=== PATIENT | female | born 1980 | race African-American/Black ===

== ENCOUNTER 2024-03-03 05:09 | Observation (INO) | payer SELFPAY ==
[2024-03-02 22:14] VITALS: BP 145/85
[2024-03-02 22:32] LABS: % Basophils 0.2 % (0-2); % Immature Granulocytes 0.4 % (0-0.5); % Lymphocytes 14.3 % (20.5-51.1); % Monocytes 4.5 % (1.7-9.3); % Neutrophils 80.6 % (42.2-75.2); Absolute Immature Granulocytes 0.1 10^3/uL (0-0.05); Absolute Lymphocytes 2.6 10^3/uL (1.2-3.4); Absolute Monocytes 0.8 10^3/uL (0.1-0.6); Absolute Neutrophils 14.6 10^3/uL (1.4-6.5); Hematocrit 30.7 % (37.0-47.0); Mean Corp Hgb Conc. 32.6 g/dL (33.0-37.0); Mean Corpuscular Hgb 22.8 pg (27.0-31.0); Mean Corpuscular Volume 69.9 fL (81.0-99.0); Mean Platelet Volume 10.3 fL (7.4-10.4); Nucleated Red Blood Cells % 0 %; Platelet Count 333 10^3/uL (130-400); Red Blood Cell Count 4.39 10^6/uL (4.20-5.40); Red Cell Dist. Width 17.2 % (11.5-14.5); White Blood Cell Count 18.1 10^3/uL (4.8-10.8)
[2024-03-02 22:44] LABS: HCG, Serum Qualitative Screen Negative
[2024-03-02 22:48] LABS: ALT (SGPT) 14 U/L (0-35); AST (SGOT) 22 U/L (14-36); Albumin 4.5 g/dl (3.5-5.0); Alkaline Phosphatase 96 U/L (38-126); Blood Urea Nitrogen 9 mg/dl (7-17); Calcium 9.2 mg/dl (8.4-10.2); Carbon Dioxide 20 mmol/L (22-30); Chloride 103 mmol/L (98-107); Glucose 159 mg/dl (70-99); Potassium 3.8 mmol/L (3.5-5.1); Sodium 131 mmol/L (135-145); Total Bilirubin 0.5 mg/dl (0.2-1.3); Total Protein 7.5 g/dl (6.3-8.2); eGFR > 60.00
[2024-03-02 23:58] VITALS: BP 116/79
[2024-03-03] VITALS (15 sets, daily range): BP systolic 117–181; BP diastolic 47–112; PULSE 79–90; O2SAT 100; BMI 41.2; BMI 39.8
--- NOTE | 2024-03-03 00:34 | ED.GENMED ---
History of Present Illness
General
Chief Complaint: Dizziness
Source: patient
Exam Limitations: none
Time Seen by Provider: 03/02/24 23:56
Travel History
Have you had any contact with someone who has COVID-19?: No
Do you have any symptoms of coronavirus? Fever > 100 degrees, chills, cough, shortness of breath, sore throat, loss of taste or smell, muscle aches, or headache?: No
History of Present Illness
History of Present Illness:
This is a 44 year old female that comes in with c/o dizziness. States that she was sitting watching TV when the room started to spine. States that it came out of no where. States that she has lightheaded all day, felt nauseated and was vomiting.
States that after turning her head side to side she felt like she was spinning. Denies any double vision. Denies any fever, chills, chest pain, SOB, abd pain, diarrhea, headache, urinary burning.
Past History
Past History
ED Past Medical History: None; Negative Asthma, HTN, Hypercholesterolemia or NIDDM
ED Past Surgical History: None
Social History
Tobacco: Former smoker
Alcohol: None
Personal: Single
Living: with family
Review of Systems
Review of Systems
All Other Systems: ROS reviewed and negative except as documented in HPI and ROS
Constitutional: Reports no symptoms; Denies fever or chills
EENT: Reports no symptoms
Respiratory: Reports no symptoms; Denies cough or trouble breathing
Cardiac: Reports no symptoms; Denies chest pain
ABD/GI: Reports nausea and vomiting; Denies abdominal pain or diarrhea
: Reports no symptoms
Musculoskeletal: Reports no symptoms
Skin: Reports no symptoms
Neurological: Reports dizzy; Denies headache
Psychiatric: Reports no symptoms
Phy Exam
General Physical Exam
General Presentation: no apparent distress
General age: appears stated age
General Skin: warm and dry
General Habitus: normal
General Mental: alert
General Hydration: appears well hydrated
ENT Exam
ENT Exam: TM's normal, pharynx normal and neck supple
Eye Exam
Eye Exam: PERRL and other (Vertical and Horizontal Nystagmus)
Cardiovascular Exam
Cardiovascular Exam: regular rate/rhythm, no edema and normal peripheral pulses
Pulmonary Exam
Pulmonary Exam: lungs clear, no respiratory distress, no rales, chest non tender, no crackles, no rhonchi, no wheezing and no cough
Gastrointestinal Exam
Gastrointestinal Exam: normal bowel sounds, non tender, soft, no organomegaly, no pulsatile mass and non distended
NIH Stroke Score
Level of Consciousness: 0 - Alert
LOC questions: 0-Answers both correctly
LOC Commands: 0-Performs both correctly
Best Gaze: 0-Normal
Visual Berg: 0=Normal, no visual loss
Facial palsy: 0=Normal, symmetrical
Motor - Right Arm: 0=No drift 10 seconds
Motor - Left Arm: 0=No drift 10 seconds
Motor - Right Le-No drift 5 seconds
Motor - Left Le-No drift 5 seconds
Limb Ataxia: 0-Absent
Sensation: 0-Normal
Best Language: 0-No aphasia
Dysarthria: 0-Normal
Extinction and Inattention: 0-No abnormality
Total Score:: 0
Musculoskeletal Exam
Musculoskeletal Exam: full ROM and no edema
Skin Exam
Skin Exam: normal color, warm/dry, no rash and no petechia
Psychiatric Exam
Psychiatric Exam: normal mood/affect
Course
Orders/Labs/Results
Orders:
Orders
03/02/24 22:20
Electrocardiogram (*1) Urgent
Reason for Study: Vertigo / Dizzy
EKG- Treatment ONCE
Test Result ONCE
03/02/24 22:26
Complete Blood Count/With Diff Urgent
Comprehensive Metabolic Panel Urgent
HCG, Serum Qualitative Screen Urgent
03/03/24 00:33
CT Head W/o Iv Contrast Urgent
Comment:
Reason For Exam: Dizziness
Urinalysis Reflex To Culture Urgent
Meclizine [Antivert] 50 mg PO NOW STA
03/03/24 00:35
Ondansetron Injectable [Zofran] 4 mg IV NOW STA
03/03/24 02:07
Diphenhydramine [Benadryl] 25 mg IV NOW STA
Prochlorperazine [Compazine] 5 mg IV NOW STA
Abnormal Lab Results
03/02/24
22:26
WBC 18.1 H 10^3/uL
(4.8-10.8)
Hgb 10.0 L g/dL
(12.0-16.0)
Hct 30.7 L %
(37.0-47.0)
MCV 69.9 L fL
(81.0-99.0)
MCH 22.8 L pg
(27.0-31.0)
MCHC 32.6 L g/dL
(33.0-37.0)
RDW 17.2 H %
(11.5-14.5)
Abs Immat Gran (auto) 0.1 H 10^3/uL
(0-0.05)
Absolute Neuts (auto) 14.6 H 10^3/uL
(1.4-6.5)
Absolute Monos (auto) 0.8 H 10^3/uL
(0.1-0.6)
Neutrophils % 80.6 H %
(42.2-75.2)
Lymphocytes % 14.3 L %
(20.5-51.1)
Sodium 131 L mmol/L
(135-145)
Carbon Dioxide 20 L mmol/L
(22-30)
Glucose 159 H mg/dl
(70-99)
03/02/24 22:26
03/02/24 22:26
Leukocytosis, Sodium slightly low. Carbon dioxide low. Glucose nonfasting, HCG negative .
Vital Signs
Initial and Last Documented VS:
Initial Vital Signs
Temp Pulse Resp BP Pulse Ox
97.5 F 68 18 145/85 97
03/02/24 22:14 03/02/24 22:14 03/02/24 22:14 03/02/24 22:14 03/02/24 22:14
Last Documented Vital Signs
Temp Pulse Resp BP Pulse Ox
97.5 F 92 33 135/74 97
03/02/24 22:14 03/03/24 03:45 03/03/24 03:45 03/03/24 03:21 03/02/24 22:14
MDM/Problems Addressed
Differential Diagnosis Includes:
Vertigo, UTI
MDM/Problems Addressed:
This is a 44 year old female that comes in with c/o dizziness that started at 11am today. States that this came out of nowhere. States that she felt lightheaded all day.
Will check labs and get CT head and urine. Will give IV fluids and Antivert.
Back into see patient. Attempted to walk but patient is very unsteady. Continues with Dizziness. Will admit for further evaluation. Hospitalist notified.
Chronic conditions affecting care:
NA
Acute Exacerbation and/or Progression of Chronic Illness:
NA
*Radiology
Radiology exam reviewed: radiology read reviewed (CT head-No acute hemorrhage, herniation, or hydrocephalus. NO calvarial fracture. The visualized paranasal sinuses and mastoid air cells are clear. )
*Pulse Oximetry
Patient hypoxic: no
*EKG
Interpreted by ED Provider?: Yes
Heart Rate: 66
Rate: normal
Rhythm: sinus
[place]: normal axis
Interval: normal interval
QRS Pattern: normal QRS
Ischemia: T-wave inversion (aVR, V1, V2, )
*Bunk Assembler Interpretation
Rate: normal
Heart Rate: 62
Rhythm: sinus
*Critical Care Note
Total Time (30-74mins, 75-104mins- exclusive of procedures): Not Applicable
ED Attending Note
-
Portions of this chart may have been created with voice recognition software.� Occasional wrong word or��sound alike� substitutions may have occurred due to the inherent limitations of voice recognition software.
Discharge Plan
Departure
Patient Disposition: Admit
Date of Disposition: 03/03/24
Time of Disposition: 03:42
Admit to: Med/Surg
Presentation/result/management discussed w/ accepting MD/DO: Hospitalist
Patient with high blood pressure during this ER visit?: Yes
Condition: Good
Covid-19: Not Applicable
Discharge Problem:
Dizziness, Nausea & vomiting
Referrals:
Bridgett Marte CRNP [Family Provider] -
Interventions
Interventions:
*Risk Screen - Suicide Last Done: 03/02/24 22:14
*General Assessment Last Done: 03/02/24 22:14
*Neglect/Abuse Screening Last Done: 03/02/24 22:14
ED- Fall Risk Assessment Last Done: 03/03/24 00:15
ED- Neurological Assessment Last Done: 03/03/24 00:15
ED- Cardiac Assessment Last Done: 03/03/24 00:15
ED Swallowing Screen Last Done: 03/03/24 00:15
Discharge Date and Time
Print Language: AZERI
[2024-03-03] MEDS: ANTIVERT 50 MG PO (00:41)
[2024-03-03] MEDS: ZOFRAN 4 MG IV (00:41)
[2024-03-03] MEDS: COMPAZINE 5 MG IV (02:10)
[2024-03-03] MEDS: BENADRYL 25 MG IV (02:10)
--- NOTE | 2024-03-03 04:31 | HPS.HSE ---
Family Physician
-
Family Physician: Bridgett Marte
Chief Complaint
-
Dizziness
History of Present Illness
Patient is a 44y F with no significant PMH who presents to ED complaining of lightheadedness and dizziness. Patient states that she was feeling well until around noon today when she developed sudden onset of her symptoms. She describes more
lightheadedness than room spinning / vertigo; however, she was quite unsteady on her feet. She denies any fall or LOC. She denies any cough, sore throat, fevers / chills, etc.
She did become nauseated and notes that she had emesis x 4 episodes.
Her symptoms persisted throughout the afternoon and she presented her to the ED for further evaluation.
She denies any prior history of similar symptoms.
Interestingly, her father was recently observed overnight at another hospital for similar symptoms.
Upon reflection, patient states that she has noted some 'fullness' or 'pressure' in the L ear for the past week or so.
She denies any ear pain, discharge or hearing loss.
Medical History
Past Medical History
Past Medical History: Reports None
Past Surgical History: Reports None
Social History
Tobacco: Non-smoker
Alcohol: None
Drug: None
Family History
Family History: Not pertinent
Allergies / Home Medications
Allergies reflects when Allergies were last updated in [facility].
Home Medications with original date entered in [facility]
Allergy/Medication List:
Allergies
Allergy/AdvReac Type Severity Reaction Status Date / Time
No Known Allergies Allergy Unverified 03/02/24 22:13
No current medications.
Review of Systems
-
History Source: Patient
A 12 point ROS was completed and negative except as noted: Yes
Constitutional: Denies Fever or Chills
EENT: Denies Sore Throat
Respiratory: Denies Cough or Trouble Breathing
Cardiac: Denies Chest Pain or Palpitations
Abdomen/GI: Reports Nausea and Vomiting; Denies Abdominal Pain
: Denies Dysuria or Frequency
Musculoskeletal: Denies Joint Pain or Edema
Neurological: Reports Dizzy; Denies Headache, Weakness or Numbness
Psych: Denies Depression or Anxiety
Physical Exam
Vital Signs
Vital Signs
Temp Pulse Resp BP Pulse Ox
97.5 F 92 33 135/74 97
03/02/24 22:14 03/03/24 03:45 03/03/24 03:45 03/03/24 03:21 03/02/24 22:14
Physical Exam
General: Other (44y F in mild distress due to dizziness.)
HEENT: Moist mucous membranes and Other (Pos nystagmus - appears to have torsional component.)
Respiratory: Clear; No Wheezes, Rales or Rhonchi
Cardiac: S1/S2 and Regular Rhythm; No Murmur
GI: Soft, Non Tender, Non Distended and Normal Bowel Sounds
Musculoskeletal: No Clubbing, No Cyanosis and No Edema
Neuro: AO x 3 and Nonfocal/grossly intact
Laboratory Results
-
03/02/24 22:26
03/02/24 22:26
Laboratory Results
Total Bilirubin 0.5 mg/dl (0.2-1.3) 03/02/24 22:26
AST 22 U/L (14-36) 03/02/24 22:26
ALT 14 U/L (0-35) 03/02/24 22:26
Alkaline Phosphatase 96 U/L (38-126) 03/02/24 22:26
Impression/Plan
-
A/P: Patient is a 44y F with no significant PMH who presents to ED complaining of lightheadedness / dizziness.
Lightheadedness / Dizziness
Ataxia
- Observe overnight for further evaluation and treatment.
- Patient feeling somewhat improved after meds in the ED, but continues to be unsteady on her feet.
- Meclizine PRN for any additional dizziness or recurrent N/V.
- PT / Vestibular Therapy eval in the AM.
- CT scan done in the ED was unremarkable.
- Follow for continued improvement.
- Consider ENT eval if symptoms worsen or persist.
Microcytic Anemia
Leukocytosis
- Anemia is likely iron deficiency secondary to recent menses.
- ? stress leukocytosis.
- Check iron studies / retic / etc.
- Observe off of abx and follow for changes in cell counts.
DVT Prophylaxis: SCDs
Code Status: Full
[2024-03-03 04:43] LABS: Urine Albumin Negative (Neg - Trace); Urine Bilirubin Negative (Negative); Urine Character Clear (Clear); Urine Color Yellow; Urine Glucose Negative (Negative); Urine Ketone 1+ (Negative); Urine Leukocyte Negative (Negative); Urine Nitrite Negative (Negative); Urine Occult Blood Negative (Negative); Urine Urobilinogen Negative (Neg - 1+)
--- NOTE | 2024-03-03 07:25 | EDRN ---
Hospitalist TT to adjust diet order
[2024-03-03] MEDS: NSS 1000 IV ×2 (07:38→17:05)
[2024-03-03 08:07] LABS: Iron 61 ug/dl (37-170)
--- NOTE | 2024-03-03 08:12 | W.PN.HOSP.TC ---
Today's Communication/Plan
-
Brain MRI. PT eval. Augmentin
Assessment / Plan
Assessment / Plan
Physical Exam
General: Other (44y F in mild distress due to dizziness.)
HEENT: Moist mucous membranes and Other (Pos nystagmus - appears to have torsional component.)
Respiratory: Clear; No Wheezes, Rales or Rhonchi
Cardiac: S1/S2 and Regular Rhythm; No Murmur
GI: Soft, Non Tender, Non Distended and Normal Bowel Sounds
Musculoskeletal: No Clubbing, No Cyanosis and No Edema
Neuro: AO x 3 and Nonfocal/grossly intact. She does have horizontal nystagmus present and ataxia.
A/P:
Lightheadedness / Dizziness
Ataxia
- Observe overnight for further evaluation and treatment.
- Patient feeling somewhat improved after meds in the ED, but continues to be unsteady on her feet.
- Meclizine PRN for any additional dizziness or recurrent N/V.
- PT / Vestibular Therapy eval in the AM.
- CT scan done in the ED was unremarkable. Plan for MRI of the brain given persistent symptoms and physical exam findings.
- Follow for continued improvement.
- Consider ENT or neuro eval if symptoms worsen or persist.
Leukocytosis:
-Stress versus infectious but I think it might be related to infection
-Obtain blood cultures
-Start oral Augmentin
-Follow trend WBC
Microcytic Anemia
Leukocytosis
- Check iron studies / retic / etc.
DVT Prophylaxis: SCDs
Code Status: Full
Anticipated Discharge: 24 - 48 hours
Subjective/Interval History
-
Date of Service: March 03, 2024
Patient still continues to have dizziness. She also has some left ear discomfort. Nausea at times.
Objective Data
-
Labs:
Laboratory Results
03/02/24
22:26
WBC 18.1 H
Hgb 10.0 L
Hct 30.7 L
Plt Count 333
Sodium 131 L
Potassium 3.8
Chloride 103
Carbon Dioxide 20 L
BUN 9
Creatinine 0.6
Glucose 159 H
Calcium 9.2
Total Bilirubin 0.5
AST 22
ALT 14
Alkaline Phosphatase 96
Vital Signs:
Vital Signs
Temp Pulse Resp BP Pulse Ox
97.5 F 85 25 181/80 97
03/02/24 22:14 03/03/24 06:00 03/03/24 06:00 03/03/24 06:00 03/02/24 22:14
[2024-03-03 08:13] LABS: Reticulocyte Count 1.8 % (0.4-2.8)
[2024-03-03 08:16] LABS: Percent Saturation 17 % (20-50); Total Iron Binding Capacity 358 ug/dl (265-497)
[2024-03-03 08:55] LABS: TSH Reflex To Free T4 0.28 uIU/ml (0.47-4.68)
[2024-03-03 09:25] LABS: Free T4 1.33 ng/dl (0.78-2.19)
[2024-03-03] MEDS: AUGMENTIN 875 MG/125 MG 1 TABLET PO ×2 (13:34→21:03)
[2024-03-03] MEDS: ANTIVERT 12.5 MG PO (14:42)
[2024-03-03] MEDS: CIPRO 1 DROPPERETT OTIC ×2 (17:06→21:08)
[2024-03-03 19:08] LABS: % Basophils 0.2 % (0-2); % Eosinophils 0.1 % (0-6); % Immature Granulocytes 0.3 % (0-0.5); % Lymphocytes 20.3 % (20.5-51.1); % Neutrophils 72.1 % (42.2-75.2); Absolute Immature Granulocytes 0.1 10^3/uL (0-0.05); Absolute Lymphocytes 3.6 10^3/uL (1.2-3.4); Absolute Monocytes 1.2 10^3/uL (0.1-0.6); Absolute Neutrophils 12.8 10^3/uL (1.4-6.5); Hematocrit 28.8 % (37.0-47.0); Hemoglobin 9.3 g/dL (12.0-16.0); Mean Corp Hgb Conc. 32.3 g/dL (33.0-37.0); Mean Corpuscular Volume 71.3 fL (81.0-99.0); Mean Platelet Volume 10.2 fL (7.4-10.4); Nucleated Red Blood Cells % 0 %; Platelet Count 296 10^3/uL (130-400); Red Blood Cell Count 4.04 10^6/uL (4.20-5.40); Red Cell Dist. Width 17.2 % (11.5-14.5); White Blood Cell Count 17.7 10^3/uL (4.8-10.8)
[2024-03-03 19:19] LABS: Chloride 103 mmol/L (98-107); Sodium 135 mmol/L (135-145)
[2024-03-03 20:06] LABS: Blood Urea Nitrogen 7 mg/dl (7-17); Calcium 9.2 mg/dl (8.4-10.2); Carbon Dioxide 21 mmol/L (22-30); Estimated Creatinine Clearance 124 ml/min; Glucose 103 mg/dl (70-99); eGFR > 60.00
[2024-03-04] MEDS: NSS 1000 IV (01:58)
[2024-03-04 03:20] VITALS: BP 137/82
[2024-03-04 06:35] LABS: % Basophils 0.2 % (0-2); % Eosinophils 0.3 % (0-6); % Immature Granulocytes 0.4 % (0-0.5); % Lymphocytes 32.4 % (20.5-51.1); % Monocytes 6.1 % (1.7-9.3); % Neutrophils 60.6 % (42.2-75.2); Absolute Immature Granulocytes 0.1 10^3/uL (0-0.05); Absolute Lymphocytes 3.9 10^3/uL (1.2-3.4); Absolute Monocytes 0.7 10^3/uL (0.1-0.6); Absolute Neutrophils 7.3 10^3/uL (1.4-6.5); Hematocrit 29.7 % (37.0-47.0); Hemoglobin 9.2 g/dL (12.0-16.0); Mean Corpuscular Hgb 22.8 pg (27.0-31.0); Mean Corpuscular Volume 73.7 fL (81.0-99.0); Mean Platelet Volume 10.4 fL (7.4-10.4); Nucleated Red Blood Cells % 0 %; Platelet Count 283 10^3/uL (130-400); Red Blood Cell Count 4.03 10^6/uL (4.20-5.40); White Blood Cell Count 12.1 10^3/uL (4.8-10.8)
[2024-03-04] MEDS: ANTIVERT 12.5 MG PO (06:35)
[2024-03-04 06:58] LABS: Blood Urea Nitrogen 8 mg/dl (7-17); Calcium 8.8 mg/dl (8.4-10.2); Carbon Dioxide 21 mmol/L (22-30); Chloride 105 mmol/L (98-107); Estimated Creatinine Clearance 108 ml/min; Glucose 90 mg/dl (70-99); Potassium 4.1 mmol/L (3.5-5.1); Sodium 136 mmol/L (135-145); eGFR > 60.00
--- NOTE | 2024-03-04 07:12 | W.PN.HOSP.TC ---
Today's Communication/Plan
-
Discharge planning today
Assessment / Plan
Assessment / Plan
Physical Exam
General: No acute distress
HEENT: Moist mucous membranes
Respiratory: Clear; No Wheezes, Rales or Rhonchi
Cardiac: S1/S2 and Regular Rhythm; No Murmur
GI: Soft, Non Tender, Non Distended and Normal Bowel Sounds
Musculoskeletal: No Clubbing, No Cyanosis and No Edema
Neuro: AO x 3 and Nonfocal/grossly intact. She does have horizontal nystagmus present and ataxia which are improved today.
A/P:
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
Lightheadedness / Dizziness
Ataxia
-MRI brain negative negative for acute stroke
-PT worked with vestibular exercises
-Short course of steroids
-Continue meclizine
-Treat otitis with antibiotic
Otitis media
-antibiotics with Augmentin and topical Cipro
Leukocytosis:
-improving
Microcytic Anemia
-Follow-up with open
DVT Prophylaxis: SCDs
Code Status: Full
Anticipated Discharge: Today
Subjective/Interval History
-
Date of Service: March 04, 2024
Patient feels much improved today.
Objective Data
-
Labs:
Laboratory Results
03/03/24 03/04/24
19:02 06:04
WBC 12.1 H
Hgb 9.2 L
Hct 29.7 L
Plt Count 283
Sodium 135 136
Potassium 4.0 4.1
Chloride 103 105
Carbon Dioxide 21 L 21 L
BUN 7 8
Creatinine 0.7 0.8
Glucose 103 H 90
Calcium 9.2 8.8
Vital Signs:
Vital Signs
Temp Pulse Resp BP Pulse Ox
98.2 F 74 20 137/82 100
03/04/24 03:20 03/04/24 03:20 03/04/24 03:20 03/04/24 03:20 03/04/24 03:20
I&O
03/03/24 03/04/24 03/05/24
06:59 06:59 06:59
Intake Total 480 / 480
Balance 480 / 480
[2024-03-04] MEDS: AUGMENTIN 875 MG/125 MG 1 TABLET PO (08:29)
[2024-03-04] MEDS: CIPRO 1 DROPPERETT OTIC (08:30)
[2024-03-04 09:30] LABS: Glycohemoglobin (HgbA1c) 5.6 % (4.0-5.6)
[2024-03-04 11:00] VITALS: BP 144/88
[2024-03-04] MEDS: DELTASONE 40 MG PO (11:15)
--- NOTE | 2024-03-04 12:07 | W.DCSUMMARY ---
Addendum entered and electronically signed by Hugo Bush MD 03/04/24 18:31:
Nurse called me patient has not been able to get cipro drops so I called her outpatient pharmacy and switched to eye drops that can be used for her ears. She can now use the antibiotics drop and RN will inform patient.
Original Note:
Discharge Summary
Discharge Data
Date of Admission: 03/03/24
Date of Discharge: 03/04/24
-
Pending Results: No
Hospital Course
Patient 44 years old female with no significant past medical history came into the hospital with lightheadedness and dizziness. Patient has been experiencing some left ear pain prior to her presentation and had sudden onset of dizziness. She did
have some concerning features that prompted to have an MRI of the brain but that came back negative for acute stroke. She was evaluated by PT. Her diagnosis was likely acute vestibular neuronitis. She was placed on a tapering course of steroids,
continue meclizine, and given IV fluids. Patient also was given antibiotics orally and topically for her ear infection. WBC count was pretty high but trended down. Blood cultures no growth. Patient improved substantially and she is going to go
home today in stable condition.
Discharge duration: 35 minutes
Discharge Plan
-
Patient Disposition: Home (Routine Discharge)
Discharge Diagnosis/Procedures: Vertigo due to vestibular neuronitis. Left otitis media. Leukocytosis.
Diet: Low Cholesterol
Activity: As tolerated
Driving Restrictions: As prior to admission
Blood Work: Please PCP to order CBC, BMP within 1 week
Other Services: PT
Referrals:
Bridgett Marte CRNP [Family Provider] - in less than 1 week
Prescriptions:
New
meclizine 12.5 mg Tablet
12.5 mg PO Q8HPRN PRN (Reason: Dizziness) Qty: 20 0RF
amoxicillin-pot clavulanate 875-125 mg Tablet
1 tab PO Q12 5 Days Qty: 10 0RF
ciprofloxacin HCl 0.2 % Dropperette
1 dropperett otic (ear) Q12 7 Days Qty: 1 0RF
prednisone 10 mg Tablet
See Rx Instructions .ROUTE .COMPLEX 6 Days Qty: 14 0RF
Rx Instructions:
Take By Mouth:
40 mg daily x2 days, 20 mg daily x2 days, 10 mg daily x2 days.
Discontinued
aspirin 81 mg Tablet,Delayed Release (Dr/Ec)
81 mg PO DAILY PRN (Reason: mild pain)
Discharge Orders:
Discharge Patient (As Directed); Ordered 03/04/24
Ordered By: Hugo Bush
Discharge Date and Time
Print Language: LUX[place]BOURGISH
--- NOTE | 2024-03-05 08:02 | W.PN.UPDATE ---
Update Note
Progress Note Update
Alerted by the lab that pt with BCx with GNR. Gurmeet Ulloa (father) updated over the phone at 0803 on 03/05/24. I explained in no uncertain terms that the patient is to come back to the ER to be readmitted for further workup and IV antibiotics.
He verbally acknowledged understanding of this.
== END 2024-03-04 13:16 | disposition home or self-care (01) ==
LOC: 3 WEST ACU 05:09
PROVIDERS: Clinical Nurse Specialist Family Health; Emergency Medicine; ADMITTING PHYSICIAN Hospitalist; ATTENDING PHYSICIAN Hospitalist; EMERGENCY PHYSICIAN Emergency Medicine; FAMILY PHYSICIAN Nurse Practitioner Family
DX: H66.92 Otitis media, unspecified, left ear (principal); H81.20 Vestibular neuronitis, unspecified ear; R11.2 Nausea with vomiting, unspecified; H92.02 Otalgia, left ear; B96.89 Other specified bacterial agents as the cause of diseases classified elsewhere; D72.829 Elevated white blood cell count, unspecified; D50.9 Iron deficiency anemia, unspecified; I11.9 Hypertensive heart disease without heart failure; R27.0 Ataxia, unspecified; Z87.891 Personal history of nicotine dependence
CPT/HCPCS: 70450; 70551; 71045; 80048; 80053; 81003; 83036; 83540; 83550; 84439; 84443; 84703; 85025; 85045; 87040; 87077; 87205; 93005; 96374; 96375; 97112; 97162; 99285; G0378

== ENCOUNTER 2024-03-05 13:19 | Inpatient (IN) | payer OTHER, SELFPAY ==
[2024-03-05 09:58] VITALS: BP 167/91
--- NOTE | 2024-03-05 12:03 | ED.GENMED ---
History of Present Illness
General
Chief Complaint: Abnormal Lab Value
Source: patient
Exam Limitations: none
Time Seen by Provider: 03/05/24 10:37
Nursing documentation reviewed up to this point in time: agreed with
Travel History
Have you had any contact with someone who has COVID-19?: No
Do you have any symptoms of coronavirus? Fever > 100 degrees, chills, cough, shortness of breath, sore throat, loss of taste or smell, muscle aches, or headache?: No
History of Present Illness
History of Present Illness:
44-year-old female with no previous medical problems was called back by the hospitalist regarding positive blood cultures from a recent hospitalization. Patient was hospitalized from 4�17 until 4�19 for dizziness which was attributed to vestibular
neuritis. She had a negative stroke workup. With the meclizine she has been able to walk better than she had been. She was also treated with Augmentin and Cipro drops for suspected ear infection.
She has not had any fevers, headache, skin rashes or lesions, cough, cold, shortness of breath, abdominal pain nausea vomiting or diarrhea.
Patient says she feels otherwise well other than positional dizziness. She has not had urinary symptoms, her initial urinalysis only showed 1+ ketones but she had a leukocytosis, maximum 18 which trended down to 12 before discharge
she has not had any signfiicatn symptoms since
she feels well
Past History
Past History
ED Past Medical History: None; Negative Asthma, HTN, Hypercholesterolemia or NIDDM
ED Past Surgical History: None
Social History
Tobacco: Former smoker
Alcohol: None
Personal: Single
Living: with family
Review of Systems
Review of Systems
Allergies reviewed?: Yes
All Other Systems: Not applicable
Phy Exam
Physical Exam
Physical Exam:
GENERAL: Alert , in no apparent distress
EYE: pupils equal and reactive
NECK: Supple
ENT: o/p clr, mmm.
Bilateral cerumen impaction
No mastoid tenderness bilaterally
CARDIAC: Regular rate and rhythm .
LUNGS: Clear breath sounds bilaterally, no acute respiratory distress, no wheezes/rales/rhonchi
ABDOMEN: Soft, without focal tenderness, no r/g, no cvat, normal bowel sounds
NEUROLOGICAL: Alert and oriented, no focal neuro deficits
SKIN: Warm and dry, skin intact.
MUSCULOSKELETAL: No edema, well perfused. neg colin's sign
PSYCH: Normal and appropriate interaction.
Course
Orders/Labs/Results
Orders:
Orders
03/05/24 10:47
Electrocardiogram (*1) Urgent
Reason for Study: Other
Other Reason for Exam: sepsis
EKG- Treatment ONCE
03/05/24 12:07
Complete Blood Count/With Diff Urgent
Comprehensive Metabolic Panel Urgent
Lactic Acid Q4H
Comment: CANCEL 2nd LACTIC ACID IF 1st LACTIC ACID IS LESS THAN 2
Urinalysis Reflex To Culture Urgent
Date Specimen was Collected: 03/05/24
Time Specimen was Collected: 11:43
Blood Culture Q30M
CHET Source: Blood/Venous
Specimen Description:
03/05/24 12:41
Blood Culture Q30M
CHET Source: Blood/Venous
Specimen Description:
03/05/24 12:58
Admit/Transfer Patient As Directed
Co-Sign Provider:
Level of Care: Inpatient admission
Assign to:: Medical/Surgical
Physician / Group: Hospitalist
Diagnosis: Bacteremia
Reason for Hospitalization: Bacteremia
Expected length of stay greater than two midnights?: Yes
ELOS- Estimated Length of Stay in days: 3
I certify the patient meets the requirements for IP care: Yes
03/05/24 12:59
Code Status As Directed
Resuscitation Status: Full Code
03/05/24 15:00
Lactic Acid Q4H
Comment: CANCEL 2nd LACTIC ACID IF 1st LACTIC ACID IS LESS THAN 2
Abnormal Lab Results
03/05/24
12:07
WBC 17.7 H 10^3/uL
(4.8-10.8)
Hgb 10.0 L g/dL
(12.0-16.0)
Hct 31.6 L %
(37.0-47.0)
MCV 72.6 L fL
(81.0-99.0)
MCH 23.0 L pg
(27.0-31.0)
MCHC 31.6 L g/dL
(33.0-37.0)
RDW 17.3 H %
(11.5-14.5)
MPV 10.7 H fL
(7.4-10.4)
Abs Immat Gran (auto) 0.1 H 10^3/uL
(0-0.05)
Absolute Neuts (auto) 13.0 H 10^3/uL
(1.4-6.5)
Absolute Lymphs (auto) 3.5 H 10^3/uL
(1.2-3.4)
Absolute Monos (auto) 1.2 H 10^3/uL
(0.1-0.6)
Lymphocytes % 19.4 L %
(20.5-51.1)
03/05/24 12:07
03/05/24 12:07
Vital Signs
Initial and Last Documented VS:
Initial Vital Signs
Temp Pulse BP Pulse Ox
97.9 F 71 167/91 100
03/05/24 09:58 03/05/24 09:58 03/05/24 09:58 03/05/24 09:58
Last Documented Vital Signs
Temp Pulse BP Pulse Ox
97.9 F 71 167/91 100
03/05/24 09:58 03/05/24 09:58 03/05/24 09:58 03/05/24 09:58
MDM/Problems Addressed
Differential Diagnosis Includes:
Bacteremia, sepsis, contaminant
MDM/Problems Addressed:
44 y/o F who was admitted 03/02-03/04 for vertigo secondary to suspected vestibular neuritis, on augmentin and cipro drops; called back (i believe by dr. mckeon) for gram neg stevan in blood culture; afebrile, well appearing; i'm repeating labs, cultures,
urine;
Discussed antibiotics with hospitalist who will order Zosyn. Patient will be admitted for IV antibiotics
*Critical Care Note
Total Time (30-74mins, 75-104mins- exclusive of procedures): Not Applicable
ED Attending Note
-
Portions of this chart may have been created with voice recognition software.� Occasional wrong word or��sound alike� substitutions may have occurred due to the inherent limitations of voice recognition software.
Discharge Plan
Departure
Patient Disposition: Admit
Date of Disposition: 03/05/24
Time of Disposition: 12:06
Admit to: Med/Surg
Presentation/result/management discussed w/ accepting MD/DO: Hospitalist
Covid-19: Not Applicable
Discharge Problem:
Bacteremia
[2024-03-05 12:27] LABS: % Basophils 0.3 % (0-2); % Eosinophils 0.1 % (0-6); % Immature Granulocytes 0.3 % (0-0.5); % Lymphocytes 19.4 % (20.5-51.1); % Monocytes 6.5 % (1.7-9.3); % Neutrophils 73.4 % (42.2-75.2); Absolute Basophils 0.1 10^3/uL (0-0.2); Absolute Immature Granulocytes 0.1 10^3/uL (0-0.05); Absolute Lymphocytes 3.5 10^3/uL (1.2-3.4); Absolute Monocytes 1.2 10^3/uL (0.1-0.6); Hematocrit 31.6 % (37.0-47.0); Mean Corp Hgb Conc. 31.6 g/dL (33.0-37.0); Mean Corpuscular Volume 72.6 fL (81.0-99.0); Mean Platelet Volume 10.7 fL (7.4-10.4); Nucleated Red Blood Cells % 0 %; Platelet Count 347 10^3/uL (130-400); Red Blood Cell Count 4.35 10^6/uL (4.20-5.40); Red Cell Dist. Width 17.3 % (11.5-14.5); White Blood Cell Count 17.7 10^3/uL (4.8-10.8)
[2024-03-05 12:32] LABS: Urine Albumin Negative (Neg - Trace); Urine Bilirubin Negative (Negative); Urine Character Clear (Clear); Urine Color Yellow; Urine Glucose Negative (Negative); Urine Ketone Negative (Negative); Urine Leukocyte Negative (Negative); Urine Nitrite Negative (Negative); Urine Occult Blood Negative (Negative); Urine Urobilinogen Negative (Neg - 1+)
--- NOTE | 2024-03-05 12:46 | HPS.HSE ---
Family Physician
-
Family Physician: Elvia Marte
Chief Complaint
-
Gram negative stevan bacterimia
History of Present Illness
44-year-old woman with no previous medical problems was called back to return to the hospital because she has a positive blood cultures from a recent hospitalization. She was hospitalized here from 4�17 until 4�19 for dizziness which was attributed
to vestibular neuritis. She had a negative stroke workup. She was started with meclizine, and she states that she has been able to walk better. She has also been treated with Augmentin and Cipro drops for the suspected ear infection. Since
discharge she has not had any fevers, headache, skin rashes or lesions, cough, cold, shortness of breath, abdominal pain nausea vomiting or diarrhea.
She states she feels otherwise well, other than positional dizziness. She denies urinary symptoms, and her initial urinalysis only showed 1+ ketones. She did have leukocytosis, with a maximum of 18 which then trended down to 12. Current labs
pending.
Medical History
Past Medical History
Past Medical History: Reports None
Past Surgical History: Reports None
Social History
Tobacco: Non-smoker
Alcohol: None
Drug: None
Living: With Family
Family History
Family History: Not pertinent
Allergies / Home Medications
Allergies reflects when Allergies were last updated in [facility].
Home Medications with original date entered in [facility]
Allergy/Medication List:
Allergies
Allergy/AdvReac Type Severity Reaction Status Date / Time
No Known Allergies Allergy Verified 03/05/24 10:04
Home Medications
amoxicillin 875 mg-potassium clavulanate 125 mg tablet 1 tab PO Q12 5 days #10 tabs 03/04/24
ciprofloxacin HCl 0.2 % ear drops in a dropperette 1 dropperett otic (ear) Q12 7 days #1 ea 03/04/24
meclizine 12.5 mg tablet 12.5 mg PO Q8HPRN PRN Dizziness #20 tabs 03/04/24
prednisone 10 mg tablet See Rx Instructions .Route .COMPLEX 6 days #14 tabs 03/04/24
Review of Systems
-
History Source: Patient
A 12 point ROS was completed and negative except as noted: Yes
Physical Exam
Vital Signs
Vital Signs
Temp Pulse BP Pulse Ox
97.9 F 71 167/91 100
03/05/24 09:58 03/05/24 09:58 03/05/24 09:58 03/05/24 09:58
Physical Exam
General: Well Developed, Well Nourished, No Apparent Distress, Comfortable and Conversant
HEENT: NormoCephalic, Atraumatic, No Ptosis, Nose Appears Normal and Ears Appear Normal
Respiratory: Clear
Cardiac: S1/S2 and Regular Rhythm
GI: Soft, Non Tender and Non Distended
Musculoskeletal: No Clubbing, No Cyanosis and No Edema
Skin: Warm and Dry; No Rash or Jaundice
Neuro: Awake, Alert, Oriented and AO x 3
Psych: Calm
Laboratory Results
-
03/05/24 12:07
Impression/Plan
-
IMPRESSION:
44 woman with probable ear infection that comes back to hospital because of bacteremia.
PLAN:
1. Bacteremia - specific organism not yet identified
Redraw cultures
Start IV abx (Zosyn)
Daily cultures until cultures result no growth
IF the following is true:
No further cultures are positive
There is good good match between organism that is growing and oral abx with good bio-availability
Then likely of to d/c with ongoing oral abx course in 2-3 days
2. Vertigo
Continue current care
ABX drops
Steroids
meclizine
VCD for DVTp
Full code
[2024-03-05 12:49] LABS: ALT (SGPT) 11 U/L (0-35); AST (SGOT) 22 U/L (14-36); Albumin 4.4 g/dl (3.5-5.0); Alkaline Phosphatase 84 U/L (38-126); Blood Urea Nitrogen 9 mg/dl (7-17); Calcium 10.1 mg/dl (8.4-10.2); Carbon Dioxide 26 mmol/L (22-30); Chloride 105 mmol/L (98-107); Glucose 91 mg/dl (70-99); Potassium 4.2 mmol/L (3.5-5.1); Sodium 135 mmol/L (135-145); Total Bilirubin 0.5 mg/dl (0.2-1.3); Total Protein 7.5 g/dl (6.3-8.2); eGFR > 60.00
[2024-03-05 12:50] LABS: Lactic Acid 1.3 mmol/L (0.7-2.0)
[2024-03-05 14:00] VITALS: BP 122/66
[2024-03-05] MEDS: ZOSYN 100 IV ×2 (14:17→21:34)
[2024-03-05 15:00] VITALS: BP 124/77
[2024-03-05] MEDS: TYLENOL 650 MG PO ×2 (16:43→21:35)
[2024-03-05 17:18] VITALS: BMI 40.1
[2024-03-05 17:19] VITALS: BP 144/83
[2024-03-05 19:25] VITALS: BP 152/90
[2024-03-05] MEDS: CIPRO 1 DROPPERETT OTIC (21:35)
[2024-03-05 23:05] VITALS: BP 141/81
[2024-03-06] MEDS: TYLENOL PO ×3 (00:20→23:28)
[2024-03-06] MEDS: ZOSYN 100 IV ×4 (02:34→20:47)
[2024-03-06 03:10] VITALS: BP 115/65
[2024-03-06 07:51] VITALS: BP 136/80
[2024-03-06] MEDS: CIPRO 1 DROPPERETT OTIC ×2 (08:46→20:47)
[2024-03-06] MEDS: TYLENOL 650 MG PO ×4 (08:46→20:46)
--- NOTE | 2024-03-06 10:34 | W.PN.HOSP.TC ---
Today's Communication/Plan
-
Check CT abdomen and pelvis
Assessment / Plan
Assessment / Plan
Gen-AAOx3, NAD
HEENT-NC, AT, anicteric, clear oral mm
Neck-supple
CV-reg, no M, +S1/S2
Lungs-clear B/L
Abd-soft, NT, ND
Ext-no edema
Musculoskeletal-no cyanosis, clubbing
Skin-warm and dry
Neuro-grossly non-focal
Psych-calm, cooperative
Gram-negative bacteremia -source unclear. No localizing symptoms. Repeat blood culture sent. Currently on IV Zosyn. Hemodynamically stable. Check empiric CT abdomen/pelvis. Leukocytosis noted, but was on prednisone during recent
hospitalization.
Vestibular neuronitis -improving.
Recent otitis media -discharged on Augmentin and ciprofloxacin eardrops.
Microcytic anemia -had a partial workup for iron deficiency last hospitalization. Unclear why ferritin was not sent. Hemoglobin stable.
Morbid obesity due to excess calories
full code
Anticipated Discharge: > 48 hours
Subjective/Interval History
-
Date of Service: March 06, 2024
Patient seen and examined. Complaining of mild vertigo.
Objective Data
-
Vital Signs:
Vital Signs
Temp Pulse Resp BP Pulse Ox
98 F 67 16 136/80 100
03/06/24 07:51 03/06/24 07:51 03/06/24 07:51 03/06/24 07:51 03/06/24 07:51
I&O
03/05/24 03/06/24 03/07/24
06:59 06:59 06:59
Intake Total 1250 / 1250
Balance 1250 / 1250
Review of Systems
-
History Source: Patient
All other systems: Reviewed and negative
[2024-03-06] MEDS: OMNIPAQUE 50 ML PO (11:37)
[2024-03-06 13:24] LABS: Ferritin 10.9 ng/ml (6.24-137)
[2024-03-06 15:44] VITALS: BP 137/81
[2024-03-06 23:02] VITALS: BP 103/60
[2024-03-07] MEDS: ZOSYN 100 IV ×3 (01:03→13:58)
--- NOTE | 2024-03-07 01:07 | PTCARENOTE ---
Patient refused second dose of Decadron, refused to have any labs drawn at this time. Wants to 'wait until the morning'. CHERYL Juarez notified of patients continued refusal of any care or medication to treat her dyspnea. Patient is requesting
and states she will take prn Xanax at this time. Given as ordered. Care ongoing.
[2024-03-07 03:15] VITALS: BP 129/77
[2024-03-07] MEDS: TYLENOL PO (04:41)
[2024-03-07 07:00] VITALS: BP 132/80
[2024-03-07 07:05] LABS: % Basophils 0.4 % (0-2); % Eosinophils 0.9 % (0-6); % Immature Granulocytes 0.6 % (0-0.5); % Lymphocytes 26.5 % (20.5-51.1); % Monocytes 7.3 % (1.7-9.3); % Neutrophils 64.3 % (42.2-75.2); Absolute Basophils 0.1 10^3/uL (0-0.2); Absolute Eosinophils 0.1 10^3/uL (0-0.7); Absolute Immature Granulocytes 0.1 10^3/uL (0-0.05); Absolute Lymphocytes 3.1 10^3/uL (1.2-3.4); Absolute Monocytes 0.9 10^3/uL (0.1-0.6); Absolute Neutrophils 7.5 10^3/uL (1.4-6.5); Hemoglobin 10.1 g/dL (12.0-16.0); Mean Corp Hgb Conc. 31.6 g/dL (33.0-37.0); Mean Corpuscular Hgb 22.9 pg (27.0-31.0); Mean Corpuscular Volume 72.6 fL (81.0-99.0); Mean Platelet Volume 10.1 fL (7.4-10.4); Nucleated Red Blood Cells % 0 %; Platelet Count 322 10^3/uL (130-400); Red Blood Cell Count 4.41 10^6/uL (4.20-5.40); Red Cell Dist. Width 17.3 % (11.5-14.5); White Blood Cell Count 11.6 10^3/uL (4.8-10.8)
[2024-03-07] MEDS: TYLENOL 650 MG PO ×4 (07:45→20:05)
[2024-03-07] MEDS: CIPRO 1 DROPPERETT OTIC ×2 (07:45→20:05)
--- NOTE | 2024-03-07 08:32 | W.PN.HOSP.TC ---
Today's Communication/Plan
-
Continue IV antibiotics. ID consult.
Assessment / Plan
Assessment / Plan
Gen-AAOx3, NAD
HEENT-NC, AT, anicteric, clear oral mm
Neck-supple
CV-reg, no M, +S1/S2
Lungs-clear B/L
Abd-soft, NT, ND
Ext-no edema
Musculoskeletal-no cyanosis, clubbing
Skin-warm and dry
Neuro-grossly non-focal
Psych-calm, cooperative
A/P:
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 Repeat blood culture no growth. Currently on IV Zosyn. Hemodynamically stable. CT abdomen/pelvis unremarkable as expected. Leukocytosis noted, but was on prednisone during recent
hospitalization. ID consult for further evaluation and advise.
Vestibular neuronitis -improving. Continue meclizine. We had planned short course of steroids but it was stopped anyhow earlier over the weekend. Not plan to restart at this point. PT reeval.
Recent otitis media -discharged on Augmentin and ciprofloxacin eardrops.
Microcytic anemia -iron deficiency. Hemoglobin stable.
Morbid obesity due to excess calories
full code
Anticipated Discharge: Within 24 hours
Subjective/Interval History
-
Date of Service: March 07, 2024
Patient with some dizziness. Denies cough dysuria or rash. Afebrile
Objective Data
-
Labs:
Laboratory Results
03/07/24
06:25
WBC 11.6 H
Hgb 10.1 L
Hct 32.0 L
Plt Count 322
Vital Signs:
Vital Signs
Temp Pulse Resp BP Pulse Ox
97.7 F 74 16 132/80 99
03/07/24 07:00 03/07/24 07:00 03/07/24 07:00 03/07/24 07:00 03/07/24 07:00
I&O
03/06/24 03/07/24 03/08/24
06:59 06:59 06:59
Intake Total 1250 / 1250 2440 / 2440
Balance 1250 / 1250 2440 / 2440
Review of Systems
-
All other systems: Reviewed and negative
--- NOTE | 2024-03-07 12:48 | CON.ID ---
Consultation
-
Date/Time Consultation Requested: 03/07/24 8:25
Date/Time Consultation Performed: 03/07/24 12:48
Requesting Provider: Dr Bush
Performing Provider: Dr Medina
Reason for Consultation: GNR bacteremia eval
Chief Complaint / Past History
Chief Complaint
dizziness
History of Present Illness
Ms Ulloa is a 44 year old female with history of class III obesity otherwise well not on significant medications who first presented here 03/03 for about 1 week of fullness/pressure behind the left ear. No ear pain, discharge or hearing loss.
Then on the day of admission she developed dizziness and lightheadedness which began abruptly, no fall or loss of consciousness. + nausea with vomiting x4. No: fevers, chills, cough or sore throat. Symptoms persisted and she presented here. Of
note father evaluated for similar symptoms at another facility. Patient was admitted here assessed as having acute vestibular neuronitis and otitis media with ataxia, MRI brain no abnormality, CT head mastoid, middle ear cavities are clear;
visualized paranasal sinuses clear. She was treated with augmentin for 5 days and topical ciprofloxacin as well as prednisone taper from 40 mg x2 days, 20 mg x2 days then 10 mg x2 days and meclazine. A st of blood cultures became positie for a GNR
in the anaerobic bottle the AM of 03/05, she was readmitted. On reexamination she reported no: ear pain, sore throat, cords in the neck, fevers, headache, skin rashes or lesions, cough, cold, shortness of breath, abdominal pain nausea vomiting or
diarrhea. Complains that her ears both feel full. 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 Now feels well except for ongoing dizziness which is overall improved - now able to site up and walk to the bathroom -
both of which is an improvement. repeat blood cultures x2 were obtained and she was started on zoysn, those blood cultures are now no growth at 48 hours
Since arrival here she has been afebrile, bp stable, wbc on arrival 17 (on steroids) today 11.6, hgb 101, plt 322, cr 0.8, t bili 0.5, ast 22, alt 11, alk phos 84, she is not currently on steroids, repeat blood cultures x2 in progress. CT a/p with
IV and oral contrast: normal. Patient currently on zosyn systemically and ciprofloxacin drops. ID is consulted for assistance with management.
Past History
Past Medical History: None
Past Surgical History: None
Allergy History:
No Known Allergies Allergy (Verified 03/05/24 10:04)
Medications Reviewed: Yes
Social History
Tobacco: Non-Smoker
Alcohol: None
Drug: None
Family History
Family History: Not Pertinent
Review of Systems
Review of Systems
General: Negative Fever or Chills
All systems: All other systems were reviewed and were negative
Vital Signs
Temp Pulse Resp BP Pulse Ox
97.7 F 74 16 132/80 99
03/07/24 07:00 03/07/24 07:00 03/07/24 07:00 03/07/24 07:00 03/07/24 07:00
Physical Exam
Physical Exam
Constitutional: No Acute Distress
Head: Other (R ear TM fully occluded by earwax, L ear TM 50% obsecured by ear wax, visible TM is clear; no tenderness over the mastoid; no tenderness swelling or cords of the neck)
Cardiovascular: Regular Rate and S1/S2; Negative Murmur or Rub
Pulmonary: Clear and Symmetric; Negative Wheezes, Rales or Rhonchi
Gastrointestinal: Soft, Non Tender, Non Distended and Normal Bowel Sounds
Skin: Warm and Dry; Negative Rash or Jaundice
Neurological: Awake
Lab / Diagnostic Study Results
03/07/24 06:25
03/05/24 12:07
Abs Immat Gran (auto) 0.1 10^3/uL (0-0.05) H 03/07/24 06:25
Absolute Neuts (auto) 7.5 10^3/uL (1.4-6.5) H 03/07/24 06:25
Absolute Lymphs (auto) 3.1 10^3/uL (1.2-3.4) 03/07/24 06:25
Absolute Monos (auto) 0.9 10^3/uL (0.1-0.6) H 03/07/24 06:25
Absolute Basos (auto) 0.1 10^3/uL (0-0.2) 03/07/24 06:25
Immature Gran % 0.6 % (0-0.5) H 03/07/24 06:25
Neutrophils % 64.3 % (42.2-75.2) 03/07/24 06:25
Lymphocytes % 26.5 % (20.5-51.1) 03/07/24 06:25
Monocytes % 7.3 % (1.7-9.3) 03/07/24 06:25
Eosinophils % 0.9 % (0-6) 03/07/24 06:25
Basophils % 0.4 % (0-2) 03/07/24 06:25
Lactic Acid Cancelled 03/05/24 15:00
Microbiology Results
Micro:
03/05/24 12:07 Blood Culture - Preliminary
Blood/Venous No Growth in 48 hours- Final report to follow
03/05/24 12:41 Blood Culture - Preliminary
Blood/Venous No Growth in 24 hours- Final report to follow
Assessment / Plan
Fusobacterium Bacteremia
Recent diagnosis of OM - likely source of bacteremia
- first blood culture ID anticipated later today
- repeat blood cultures x2 are no growth at 48 hours
- has likely been on appropriate antibiotics since 03/03; today would be day 5 of treatment
- note steroid taper that was initially planned has been stopped
- would continue augmentin through the end of 03/09 - 7 day course
- follow up with ENT for disimpaction; advised against OTC debrox as likely to induce vertigo
Care Review
Plan reviewed with: Physician (Dr Bush - steroids)
[2024-03-07 15:00] VITALS: BP 120/72
--- NOTE | 2024-03-07 16:25 | CM ---
Reviewed chart, met with patient to obtain information for assessment. Patient stated that she lives in a split level home with one step to enter. She does not live alone but did not specify the relationship of with whom she resides. Patient
described herself as independent with her ADLs, personal care, dressing, bathing and ambulates without device.
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 She drives and can get to her own appointments and does all her own shopping.
Patient denied any DME.
She has never had VN services.
She has not been to a SNF.
Patient has a prescription plan and uses [facility] in [place] for all of her medications.
Her PCP is, Dr. Elvia Marte.
Patient stated that she feels she is at her baseline and does not anticipate any needs at time of discharge.
Plan: Case management will continue to follow and assist with discharge planning. Patient would like to return home.
[2024-03-07] MEDS: AUGMENTIN 875 MG/125 MG 1 TABLET PO (20:05)
[2024-03-07 23:15] VITALS: BP 139/90
[2024-03-08] MEDS: TYLENOL PO ×2 (01:37→03:11)
[2024-03-08 06:21] LABS: % Basophils 0.3 % (0-2); % Eosinophils 1.1 % (0-6); % Immature Granulocytes 0.4 % (0-0.5); % Lymphocytes 25.4 % (20.5-51.1); % Monocytes 6.5 % (1.7-9.3); % Neutrophils 66.3 % (42.2-75.2); Absolute Eosinophils 0.1 10^3/uL (0-0.7); Absolute Immature Granulocytes 0.1 10^3/uL (0-0.05); Absolute Lymphocytes 3.1 10^3/uL (1.2-3.4); Absolute Monocytes 0.8 10^3/uL (0.1-0.6); Hematocrit 31.8 % (37.0-47.0); Mean Corp Hgb Conc. 31.4 g/dL (33.0-37.0); Mean Corpuscular Hgb 22.6 pg (27.0-31.0); Mean Corpuscular Volume 71.9 fL (81.0-99.0); Mean Platelet Volume 10.4 fL (7.4-10.4); Nucleated Red Blood Cells % 0 %; Platelet Count 329 10^3/uL (130-400); Red Blood Cell Count 4.42 10^6/uL (4.20-5.40); Red Cell Dist. Width 17.1 % (11.5-14.5); White Blood Cell Count 12.1 10^3/uL (4.8-10.8)
[2024-03-08 07:00] VITALS: BP 134/78
[2024-03-08] MEDS: TYLENOL 650 MG PO (08:21)
[2024-03-08] MEDS: CIPRO 1 DROPPERETT OTIC (08:21)
[2024-03-08] MEDS: AUGMENTIN 875 MG/125 MG 1 TABLET PO (08:22)
--- NOTE | 2024-03-08 08:34 | W.PN.HOSP.TC ---
Today's Communication/Plan
-
Discharge planning today
Assessment / Plan
Assessment / Plan
Gen-AAOx3, NAD
HEENT-NC, AT, anicteric, clear oral mm
Neck-supple
CV-reg, no M, +S1/S2
Lungs-clear B/L
Abd-soft, NT, ND
Ext-no edema
Musculoskeletal-no cyanosis, clubbing
Skin-warm and dry
Neuro-grossly non-focal
Psych-calm, cooperative
A/P:
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 Repeat blood culture no growth. Currently on IV Zosyn changed to Augmentin again. Hemodynamically stable. CT abdomen/pelvis unremarkable as expected. Leukocytosis noted, but was on prednisone
during recent hospitalization. ID consult appreciated. ID cleared her for discharge.
Vestibular neuronitis -improving. Continue meclizine. We had planned short course of steroids but it was stopped anyhow earlier over the weekend. Not plan to restart at this point. PT reeval.
Recent otitis media -discharged on Augmentin and ciprofloxacin eardrops.
Microcytic anemia -iron deficiency. Hemoglobin stable.
Morbid obesity due to excess calories
full code
Anticipated Discharge: Today
Subjective/Interval History
-
Date of Service: March 08, 2024
Patient doing better overall. Afebrile
Objective Data
-
Labs:
Laboratory Results
03/08/24 03/08/24
06:01 07:12
WBC 12.1 H
Hgb 10.0 L
Hct 31.8 L
Plt Count 329
Sodium Cancelled Pending
Potassium Cancelled Pending
Chloride Cancelled Pending
Carbon Dioxide Cancelled Pending
BUN Cancelled Pending
Creatinine Cancelled Pending
Glucose Cancelled Pending
Calcium Cancelled Pending
Vital Signs:
Vital Signs
Temp Pulse Resp BP Pulse Ox
97.8 F 69 16 134/78 100
03/08/24 07:00 03/08/24 07:00 03/08/24 07:00 03/08/24 07:00 03/08/24 07:00
I&O
03/07/24 03/08/24 03/09/24
06:59 06:59 06:59
Intake Total 2440 / 2440 1140 / 1140
Balance 2440 / 2440 1140 / 1140
--- NOTE | 2024-03-08 08:37 | W.DCSUMMARY ---
Discharge Summary
Discharge Data
Date of Admission: 03/05/24
Date of Discharge: 03/08/24
-
Pending Results: No
Hospital Course
Patient 44 years old female with history of obesity but no other significant medical history and came into the hospital initially with vertigo and was diagnosed with vestibular neuritis and came back with positive blood cultures for further
evaluation. During her recent hospital stay she was treated for otitis media with antibiotics and also with a short course of steroids for her acute vestibular neuronitis and she was sent home in stable condition. She was called back since her
blood cultures were positive. She did remain afebrile and did well on both hospital stays. She was placed on IV Zosyn and blood cultures repeated. Repeated blood cultures no growth. Initial blood culture grew Fusobacterium likely otitis media
was the cause. ID consulted. ID recommended to switch again to Augmentin. ID cleared her for discharge. Patient will be discharged in stable condition today.
Discharge duration: 35 minutes
Discharge Plan
-
Patient Disposition: Home (Routine Discharge)
Discharge Diagnosis/Procedures: Fusobacterium bacteremia due to otitis media. Acute vestibular neuronitis. Iron deficiency anemia.
Diet: Low Cholesterol
Activity: As tolerated
Driving Restrictions: As prior to admission
Blood Work: His PCP did order CBC, BMP within 1 week
Referrals:
Elvia Marte MD [Family Provider] - in less than 1 week
Prescriptions:
New
amoxicillin-pot clavulanate 875-125 mg Tablet
1 tab PO Q12 2 Days Qty: 0 0RF
Continued
meclizine 12.5 mg Tablet
12.5 mg PO Q8HPRN PRN (Reason: Dizziness) Qty: 20 0RF
ciprofloxacin HCl 0.2 % Dropperette
1 dropperett otic (ear) Q12 7 Days Qty: 1 0RF
Discontinued
amoxicillin-pot clavulanate 875-125 mg Tablet
1 tab PO Q12 5 Days Qty: 10 0RF
prednisone 10 mg tablet
See Rx Instructions .ROUTE .COMPLEX
Rx Instructions:
Take By Mouth:
40 mg daily x2 days, 20 mg daily x2 days, 10 mg daily x2 days.
Discharge Orders:
Discharge Patient (As Directed); Ordered 03/08/24
Ordered By: Hugo Bush
Discharge Date and Time
Discharge Date/Time: 03/08/24 12:48
Print Language: LIBERIAN
[2024-03-08 09:21] LABS: Blood Urea Nitrogen 10 mg/dl (7-17); Calcium 9.6 mg/dl (8.4-10.2); Carbon Dioxide 25 mmol/L (22-30); Chloride 104 mmol/L (98-107); Estimated Creatinine Clearance 109 ml/min; Glucose 88 mg/dl (70-99); Potassium 4.6 mmol/L (3.5-5.1); Sodium 136 mmol/L (135-145); eGFR > 60.00
--- NOTE | 2024-03-08 12:03 | W.PN.ID1 ---
Date of Service
Date of Service: March 08, 2024
Today's Communication
- would continue augmentin through the end of 03/09 - 7 day course
- follow up with ENT for disimpaction; advised against OTC debrox as likely to induce vertigo
stable for dc from ID perspective, follow up with PCP
Assessment / Plan
Fusobacterium Bacteremia
Recent diagnosis of OM - likely source of bacteremia
- 03/03 blood culture Fusobacterium; 03/05 blood cultures no growth to date
- has been on appropriate antibiotics since 03/03
- would continue augmentin through the end of 03/09 - 7 day course
- follow up with ENT for disimpaction; advised against OTC debrox as likely to induce vertigo
stable for dc from ID perspective, follow up with PCP
Chief Complaint
-: Bacteremia
Subjective / Review of Systems
afebrile
bp stable
declined wbc count overall, no left shift
cr 0.8
repeat blood cultures remain no growth to date
no new complaints - vertigo continues to improve
Vital Signs / Physical Exam
Vital Signs
Vital Signs
Temp Pulse Resp BP Pulse Ox
97.8 F 69 16 134/78 100
03/08/24 07:00 03/08/24 07:00 03/08/24 07:00 03/08/24 07:00 03/08/24 08:12
Physical Exam
Constitutional: No Acute Distress
Cardiovascular: Regular Rate and Rub
Pulmonary: Symmetric and Non Labored
Gastrointestinal: Non Distended
Skin: Dry; Negative Rash or Jaundice
Neurological: Awake
Psychological: Calm
Objective Data
Lab Data
Lab Results
03/08/24 06:01
03/08/24 07:12
Estimated Creat Clear 109 ml/min 03/08/24 07:12
Lactic Acid Cancelled 03/05/24 15:00
Total Bilirubin 0.5 mg/dl (0.2-1.3) 03/05/24 12:07
AST 22 U/L (14-36) 03/05/24 12:07
ALT 11 U/L (0-35) 03/05/24 12:07
Alkaline Phosphatase 84 U/L (38-126) 03/05/24 12:07
Most recent labs reviewed.
Micro Results:
03/05/24 12:41 Blood Culture - Preliminary
Blood/Venous No Growth in 48 hours- Final report to follow
03/05/24 12:07 Blood Culture - Preliminary
Blood/Venous No Growth in 48 hours- Final report to follow
== END 2024-03-08 12:48 | disposition home or self-care (01) | DRG 872 ==
LOC: 3 WEST ACU 13:19
PROVIDERS: Hospitalist; Physician Assistant; ADMITTING PHYSICIAN Internal Medicine; ATTENDING PHYSICIAN Hospitalist; EMERGENCY PHYSICIAN Emergency Medicine; FAMILY PHYSICIAN Internal Medicine; OTHER PHYSICIAN Student in an Organized Health Care Education/Training Program
DX: R78.81 Bacteremia (principal); Z68.41 Body mass index [BMI] 40.0-44.9, adult; E66.01 Morbid (severe) obesity due to excess calories; H66.90 Otitis media, unspecified, unspecified ear; H81.20 Vestibular neuronitis, unspecified ear; D50.9 Iron deficiency anemia, unspecified; Z87.891 Personal history of nicotine dependence
CPT/HCPCS: 74177; 80048; 80053; 81003; 82728; 83605; 85025; 87040; 93005; 96365; 99284; Q9967